=== PATIENT | male | born 1980 | race African-American/Black ===

== ENCOUNTER 2022-03-27 22:35 | Emergency (ER) | payer OTHER ==
[~2022-03-27] VITALS: Ht 172.7 cm; Wt 72.1 kg
--- NOTE | 2022-03-27 23:06 | NUR ---
Dr Yost at bedside, MSE in progress.
[2022-03-27 23:42] LABS: *BILIRUBIN,URIN NEGATIVE (NEGATIVE); *BLOOD, URINE TRACE (NEGATIVE); *CLARITY,URINE CLEAR (CLEAR); *COLOR,URINE YELLOW (YELLOW); *KETONES,URINE NEGATIVE (NEGATIVE); *UROBILINOGEN,URINE 0.2 E.U./dl (NORMAL); LEUKOCYTE ESTERASE ,URINE NEGATIVE (NEGATIVE); NITRITE, URINE NEGATIVE (NEGATIVE); UGLUCOSE NEGATIVE (NEGATIVE)
[2022-03-27 23:43] LABS: BACTERIA,URINE NONE SEEN /HPF (NONE SEEN); RBC,URINE 0-3 /HPF (0-3); SQUAMOUS EPITHELIAL CELL,UR NONE SEEN /HPF (NONE SEEN); WBC,URINE NONE SEEN /HPF (0-3)
[2022-03-27 23:43] LABS: CREATININE 0.8 mg/dL (0.6-1.3); MEAN CORPUSCULAR HEMOGLOBIN 29.8 uug (23.8-33.4); MEAN CORPUSCULAR VOLUME 87.2 fL (73.0-96.2); PLATELET COUNT (AUTO) 273 K/uL (152-348); POTASSIUM 3.7 mmol/L (3.5-5.1)
[2022-03-27 23:49] LABS: BILIRUBIN,DIRECT 0.1 mg/dL (0.0-0.2); BILIRUBIN,TOTAL 0.5 mg/dL (0.2-1.0); TOTAL PROTEIN, SERUM 8.4 g/dL (6.4-8.2)
[2022-03-28] MEDS ORDERED: KETOROLAC TROMETHAMINE 60 MG INJ IM ONE ×2 (00:05→00:15)
--- NOTE | 2022-03-28 04:49 | NUR ---
Patient given written and verbal discharge instructions. Patient verbalizes understanding of instructions. Patient is ambulatory with steady gait. Refuses offer of halfway placement.
[2022-03-28 04:51] VITALS: BP 115/80
== END 2022-03-28 04:52 | disposition home or self-care (01) ==
LOC: ER 22:44
DX: R10.32 Left lower quadrant pain (principal); I44.0 Atrioventricular block, first degree
CPT/HCPCS: 36415; 80048; 80076; 81001; 82550; 83690; 85025; 93005; 96372; 99284; J1885; A4663

== ENCOUNTER 2022-05-13 10:33 | Emergency (ER) | payer OTHER ==
[~2022-05-13] VITALS: Ht 182.9 cm; Wt 72.6 kg
[2022-05-13] MEDS ORDERED: ONDA4TAB5 PO (11:14)
[2022-05-13] MEDS ORDERED: FAMO-132 PO (11:14)
[2022-05-13] MEDS ORDERED: FAMOTIDINE 20 MG TABLET PO ONE (11:15)
[2022-05-13] MEDS ORDERED: MAG HYDROX/AL HYDROX/SIMETH 30 ML LIQUID UDC PO ONE (11:15)
[2022-05-13] MEDS ORDERED: FAMOTIDINE. 20 MG/2 ML VIAL IV ONE (11:15)
[2022-05-13] MEDS ORDERED: LIDOCAINE VISCUS 2% 15 ML UDC MM ONE (11:15)
[2022-05-13] MEDS ORDERED: ONDANSETRON ODT 4 MG TAB.RAPDIS SL ONE (11:15)
[2022-05-13 11:25] LABS: *BILIRUBIN,URIN NEGATIVE (NEGATIVE); *BLOOD, URINE NEGATIVE (NEGATIVE); *CLARITY,URINE CLEAR (CLEAR); *COLOR,URINE YELLOW (YELLOW); *KETONES,URINE NEGATIVE (NEGATIVE); *UROBILINOGEN,URINE 0.2 E.U./dl (NORMAL); LEUKOCYTE ESTERASE ,URINE NEGATIVE (NEGATIVE); NITRITE, URINE NEGATIVE (NEGATIVE); PH,URINE 6.5 (5.0-8.0); UGLUCOSE NEGATIVE (NEGATIVE)
[2022-05-13] MEDS ORDERED: MAG HYDROX/AL HYDROX/SIMETH 30 ML LIQUID UDC ONE (11:27)
[2022-05-13] MEDS ORDERED: FAMOTIDINE 20 MG TABLET ONE (11:27)
[2022-05-13] MEDS ORDERED: ONDANSETRON ODT 4 MG TAB.RAPDIS ONE (11:27)
[2022-05-13] MEDS ORDERED: LIDOCAINE VISCUS 2% 15 ML UDC ONE (11:27)
[2022-05-13 11:31] LABS: HEMATOCRIT 30.9 % (36.7-47.1); MEAN CORPUSCULAR HEMOGLOBIN 29.1 uug (23.8-33.4); MEAN CORPUSCULAR VOLUME 85.6 fL (73.0-96.2); PLATELET COUNT (AUTO) 303 K/uL (152-348)
[2022-05-13 11:58] LABS: BILIRUBIN,DIRECT 0.2 mg/dL (0.0-0.2); BILIRUBIN,TOTAL 0.6 mg/dL (0.2-1.0); CREATININE 0.8 mg/dL (0.6-1.3); POTASSIUM 3.5 mmol/L (3.5-5.1); TOTAL PROTEIN, SERUM 8.4 g/dL (6.4-8.2)
--- NOTE | 2022-05-13 12:30 | NUR ---
Pt states he feels better, pain down from 5/10 to 3/10.
--- NOTE | 2022-05-13 13:24 | NUR ---
2nd call to radiologists.
--- NOTE | 2022-05-13 14:22 | NUR ---
Gave pt RX and d/c instructions, pt verbalized understanding.
[2022-05-13] MEDS ORDERED: OXYC-133 PO (23:21)
== END 2022-05-13 14:27 | disposition home or self-care (01) ==
LOC: ER 10:33
DX: R10.32 Left lower quadrant pain (principal)
CPT/HCPCS: 36415; 83690; 85025; A4663; Q0162

== ENCOUNTER 2022-05-13 21:01 | Emergency (ER) | payer OTHER ==
[~2022-05-13] VITALS: Ht 182.9 cm; Wt 72.6 kg
[~2022-05-13 21:01] MED LIST: FAMO-132 PO; ONDA4TAB5 PO
[2022-05-13] MEDS ORDERED: OXYC-133 PO (23:21)
[2022-05-13] MEDS ORDERED: OXYCODONE/APAP 5-325 MG TABLET PO ONE (23:30)
[2022-05-13] MEDS ORDERED: OXYCODONE/APAP 5-325 MG TABLET ONE (23:32)
--- NOTE | 2022-05-14 04:50 | NUR ---
Patient discharged to home in stable condition. Written and verbal after care instructions given. Patient verbalizes understanding of instructions. Stressed follow up or return to ER for worsening s/s. Patient is a/ox4, NAD noted. Patient is able to walk with steady gait
[2022-05-14 04:57] VITALS: BP 123/73
== END 2022-05-14 04:57 | disposition home or self-care (01) ==
LOC: ER 21:04
DX: G89.29 Other chronic pain (principal); R10.9 Unspecified abdominal pain; Z59.00 Homelessness unspecified
CPT/HCPCS: A4663

== ENCOUNTER 2022-05-14 12:53 | Emergency (ER) | payer OTHER ==
[~2022-05-14] VITALS: Ht 167.6 cm; Wt 65.8 kg
[~2022-05-14 12:53] MED LIST changes: +OXYC-133 PO
--- NOTE | 2022-05-14 13:24 | NUR ---
PT WAS EVALUATED BY DR DONG. PT WAS D/C'd TO HOME. D/C INSTRUCTIONS GIVEN TO THE PT BY DR DONG.
[2022-05-14 13:25] VITALS: BP 131/68
== END 2022-05-14 13:26 | disposition home or self-care (01) ==
LOC: ER 12:53
DX: G89.29 Other chronic pain (principal); R10.9 Unspecified abdominal pain; Z59.00 Homelessness unspecified; T21.01XS Burn of unspecified degree of chest wall, sequela; T22.09 Burn of unspecified degree of multiple sites of shoulder and upper limb, except wrist and hand; X08.8XXS Exposure to other specified smoke, fire and flames, sequela; L91.0 Hypertrophic scar; L90.5 Scar conditions and fibrosis of skin
CPT/HCPCS: A4663

== ENCOUNTER 2022-05-18 18:01 | Emergency (ER) | payer OTHER ==
[~2022-05-18] VITALS: Ht 175.3 cm; Wt 68.0 kg
--- NOTE | 2022-05-18 18:34 | NUR ---
Dr. Xie at bedside. exam in progress.
[2022-05-18] MEDS ORDERED: OXYCODONE/APAP 5-325 MG TABLET ONE (18:43)
[2022-05-18] MEDS ORDERED: OXYCODONE/APAP 5-325 MG TABLET PO ONE (18:45)
[2022-05-18 18:59] LABS: MEAN CORPUSCULAR HEMOGLOBIN 29.1 uug (23.8-33.4); MEAN CORPUSCULAR VOLUME 86.4 fL (73.0-96.2); PLATELET COUNT (AUTO) 286 K/uL (152-348)
--- NOTE | 2022-05-18 19:05 | NUR ---
Report given to incoming rn.
[2022-05-18 19:06] LABS: CREATININE 0.9 mg/dL (0.6-1.3); POTASSIUM 3.7 mmol/L (3.5-5.1)
--- NOTE | 2022-05-18 19:09 | NUR ---
Report given to incoming rn.
[2022-05-18 19:12] LABS: BILIRUBIN,DIRECT 0.1 mg/dL (0.0-0.2); BILIRUBIN,TOTAL 0.6 mg/dL (0.2-1.0); TOTAL PROTEIN, SERUM 8.6 g/dL (6.4-8.2)
[2022-05-18] MEDS ORDERED: OXYC-128 PO (19:20)
--- NOTE | 2022-05-18 19:36 | NUR ---
Patient given written and verbal discharge instructions. Patient verbalizes understanding of instructions. Patient is ambulatory with steady gait. Refuses offer of long-term placement. Patient given list of available shelters in surrounding area. Patient left [facility] in room with presciption.
== END 2022-05-18 19:38 | disposition home or self-care (01) ==
LOC: ER 18:03
DX: G89.29 Other chronic pain (principal); R10.30 Lower abdominal pain, unspecified; Z59.00 Homelessness unspecified
CPT/HCPCS: 36415; 83690; 85025; A4663

== ENCOUNTER 2022-05-21 21:08 | Emergency (ER) | payer SELFPAY ==
[~2022-05-21 21:08] MED LIST changes: +OXYC-128 PO
--- NOTE | 2022-05-21 21:37 | NUR ---
Patient was called to be triaged but stated "I don't want to be seen anymore and left the ER
== END 2022-05-21 21:39 | disposition left against medical advice (07) ==
LOC: ER 21:10
DX: Z53.21 Procedure and treatment not carried out due to patient leaving prior to being seen by health care provider (principal)

== ENCOUNTER 2022-05-23 12:17 | Emergency (ER) | payer OTHER ==
[~2022-05-23] VITALS: Ht 175.3 cm; Wt 68.0 kg
== END 2022-05-23 12:42 | disposition left against medical advice (07) ==
LOC: ER 12:17
DX: Z53.21 Procedure and treatment not carried out due to patient leaving prior to being seen by health care provider (principal)

== ENCOUNTER 2022-05-23 21:02 | Emergency (ER) | payer OTHER ==
[~2022-05-23] VITALS: Ht 175.3 cm; Wt 68.0 kg
--- NOTE | 2022-05-23 23:19 | NUR ---
Dr. Xie at bedside for MSE.
[2022-05-23] MEDS ORDERED: OXYCODONE/APAP 5-325 MG TABLET PO ONE (23:30)
[2022-05-23] MEDS ORDERED: OXYCODONE/APAP 5-325 MG TABLET ONE (23:50)
--- NOTE | 2022-05-24 00:01 | NUR ---
pt verbalizes feeling better and would like to eat a sandwich and some juice. All needs attended. Given leaflets on where to get help and more resources. Answered all questions and satisfied. Provided warm blankets for patient's comfort.
[2022-05-24 00:04] VITALS: BP 118/68
== END 2022-05-24 00:04 | disposition home or self-care (01) ==
LOC: ER 21:02
DX: G89.29 Other chronic pain (principal); R10.9 Unspecified abdominal pain; R64 Cachexia; Z68.22 Body mass index [BMI] 22.0-22.9, adult; Z59.00 Homelessness unspecified
CPT/HCPCS: A4663

== ENCOUNTER 2022-05-24 10:04 | Emergency (ER) | payer OTHER ==
--- NOTE | 2022-05-24 10:52 | NUR ---
PT LEFT WITHOUT BEEN TRIAGED.
== END 2022-05-24 11:10 | disposition left against medical advice (07) ==
LOC: ER 10:08
DX: Z53.21 Procedure and treatment not carried out due to patient leaving prior to being seen by health care provider (principal)

== ENCOUNTER 2022-07-16 05:46 | Emergency (ER) | payer OTHER ==
[~2022-07-16] VITALS: Ht 172.7 cm; Wt 72.6 kg
--- NOTE | 2022-07-16 06:40 | NUR ---
Patient walked into ER c/o lower abdominal, penis and rectal pain. Patient denies dysuria or rectal bleed.
--- NOTE | 2022-07-16 06:45 | NUR ---
Dr. Spencer on bedside for MSE.
[2022-07-16] MEDS ORDERED: CEFTRIAXONE 500 MG VIAL IM ONE (07:00)
[2022-07-16] MEDS ORDERED: AZITHROMYCIN 250 MG TABLET PO ONE (07:00)
[2022-07-16] MEDS ORDERED: LIDOCAINE HCL 1% 20 ML VIAL ONE (07:09)
[2022-07-16] MEDS ORDERED: CEFTRIAXONE 500 MG VIAL ONE (07:10)
[2022-07-16] MEDS ORDERED: AZITHROMYCIN 250 MG TABLET ONE (07:10)
[2022-07-16 08:13] LABS: *BILIRUBIN,URIN NEGATIVE (NEGATIVE); *BLOOD, URINE 2+ (NEGATIVE); *CLARITY,URINE CLEAR (CLEAR); *COLOR,URINE YELLOW (YELLOW); *KETONES,URINE NEGATIVE (NEGATIVE); *UROBILINOGEN,URINE 0.2 E.U./dl (NORMAL); LEUKOCYTE ESTERASE ,URINE NEGATIVE (NEGATIVE); NITRITE, URINE NEGATIVE (NEGATIVE); UGLUCOSE NEGATIVE (NEGATIVE)
[2022-07-16 08:31] LABS: BACTERIA,URINE NONE SEEN /HPF (NONE SEEN); SQUAMOUS EPITHELIAL CELL,UR FEW /HPF (NONE SEEN); WBC,URINE 0-3 /HPF (0-3)
--- NOTE | 2022-07-16 09:17 | NUR ---
Pt has been cleared by [facility] for DC. Written and verbal after care instructions given. Patient verbalizes understanding of instructions. No prescriptions needed. Breakfast tray provided prior DC. Stressed follow up or return to ER for worsening s/s. Patient discharged to home in stable condition, ambulated out of ED steady gait.
[2022-07-16 09:22] VITALS: BP 140/60
== END 2022-07-16 09:25 | disposition home or self-care (01) ==
LOC: ER 05:48
DX: A57 Chancroid (principal); R30.0 Dysuria; Z79.899 Other long term (current) drug therapy; Z59.00 Homelessness unspecified; F15.10 Other stimulant abuse, uncomplicated; Z86.19 Personal history of other infectious and parasitic diseases
CPT/HCPCS: 99283; 81001; 96372; J0696; J3490; A4663; Q0144

== ENCOUNTER 2024-12-31 20:18 | Emergency (ER) | payer OTHER ==
[~2024-12-31] VITALS: Ht 177.8 cm; Wt 81.6 kg
[2024-12-31] MEDS ORDERED: ACETAMINOPHEN 500 MG TABLET ONE (21:37)
[2024-12-31] MEDS: ACETAMINOPHEN 500 MG TABLET PO ONE (21:51)
[2024-12-31] MEDS ORDERED: CYCL5TAB PO (22:32)
[2024-12-31 22:42] VITALS: BP 126/58; O2SAT 100
[2025-01-02] MEDS ORDERED: ACETAMINOPHEN 325 MG TABLET ONE (01:30)
== END 2024-12-31 22:41 | disposition home or self-care (01) ==
LOC: ER 20:18
DX: S76.911A Strain of unspecified muscles, fascia and tendons at thigh level, right thigh, initial encounter (principal); G89.29 Other chronic pain; Z59.00 Homelessness unspecified; X58.XXXA Exposure to other specified factors, initial encounter; Y93.01 Activity, walking, marching and hiking; Y92.89 Other specified places as the place of occurrence of the external cause; Y99.8 Other external cause status
CPT/HCPCS: 73551; A4606; A4663; A9150

== ENCOUNTER 2025-01-02 01:08 | Emergency (ER) | payer OTHER ==
[~2025-01-02] VITALS: Ht 172.7 cm; Wt 72.6 kg
[~2025-01-02 01:08] MED LIST changes: +CYCL5TAB PO
[2025-01-02] MEDS: ACETAMINOPHEN 325 MG TABLET PO ONE (01:32)
[2025-01-02 01:44] VITALS: BP 118/75; TEMP 97.9; O2SAT 100
== END 2025-01-02 01:45 | disposition home or self-care (01) ==
LOC: ER 01:17
DX: G89.29 Other chronic pain (principal); F19.10 Other psychoactive substance abuse, uncomplicated; M79.605 Pain in left leg; M79.604 Pain in right leg; Z59.00 Homelessness unspecified
CPT/HCPCS: A4606; A4663